=== PATIENT | male | born 1965 | race Caucasian/White ===

== ENCOUNTER 2017-12-02 21:41 | Emergency (ER) | payer OTHER ==
[~2017-12-02] VITALS: Ht 175.3 cm; Wt 81.9 kg
[2017-12-02 21:45] VITALS: TEMP 36.6; O2SAT 94; Ht 175.3 cm; Wt 81.9 kg
[2017-12-02] MEDS ORDERED: LIDOCAINE HCL 2% VISC SOLN 20 ML UDC PO STA (21:56)
[2017-12-02] MEDS ORDERED: ALUMINUM/MAGNESIUM SUSP 30 ML UDC PO STA (21:56)
[2017-12-02 22:04] LABS: BASO % 0.4 %; BASO ABS # 0.02 K/uL (0-0.2); EOS % 6.4 %; EOS ABS # 0.36 K/uL (0-0.5); HEMATOCRIT 46.8 % (42-52); IG# 0.01 K/uL (0.00-0.02); LYMPH % 35.6 %; LYMPH ABS # 2.01 K/uL (1.2-3.4); MEAN CELL VOLUME 89.8 fL (80-100); MEAN CORPUSCULAR HEMOGLOBIN 32.6 pg (25-34); MEAN CORPUSCULAR HGB CONC 36.3 g/dl (32-36); MEAN PLATELET VOLUME 10.5 fL (7.4-10.4); MONO % 15.6 %; MONO ABS # 0.88 K/uL (0.11-0.59); NEUT % 41.8 %; NEUT ABS # 2.37 K/uL (1.4-6.5); PLATELET COUNT 139 K/uL (130-400); RED CELL DISTRIBUTION WIDTH CV 12.6 % (11.5-14.5); RED CELL DISTRIBUTION WIDTH SD 41.2 fL (36.4-46.3); WHITE BLOOD COUNT 5.65 K/uL (4.8-10.8)
--- NOTE | 2017-12-02 22:18 | DIAGNOSTIC IMAGING REPORT ---
SINGLE VIEW CHEST CLINICAL HISTORY: Atypical chest pain. FINDINGS: An AP, portable, upright chest radiograph is obtained. No prior studies are available for comparison at the time of dictation. The examination is degraded by portable technique and patient rotation. The cardiomediastinal silhouette is unremarkable. There is mild elevation of the right hemidiaphragm. The lungs and pleural spaces are clear. No pneumothorax is seen. The bony thorax is grossly intact. IMPRESSION: No active disease in the chest. Electronically signed by: Shmuel Santillan M.D. 12/02/2017 10:16 PM Dictated Date/Time: 12/02/2017 10:16 PM
[2017-12-02 22:25] LABS: ALBUMIN 3.9 gm/dl (3.4-5.0); ALT/SGPT 120 U/L (12-78); BLOOD UREA NITROGEN 8 mg/dl (7-18); CALCIUM 8.9 mg/dl (8.5-10.1); CARBON DIOXIDE 27 mmol/L (21-32); CREATININE 0.91 mg/dl (0.60-1.40); GLUCOSE 106 mg/dl (70-99); LIPASE 212 U/L (73-393); POTASSIUM 3.6 mmol/L (3.5-5.1); SODIUM 138 mmol/L (136-145)
[2017-12-02 22:30] LABS: ALKALINE PHOSPHATASE 77 U/L (45-117); AST/SGOT 51 U/L (15-37); TOTAL PROTEIN 7.7 gm/dl (6.4-8.2)
[2017-12-02] MEDS ORDERED: CARV3.122 PO (23:01)
[2017-12-02] MEDS ORDERED: LOSA50TA6 PO (23:01)
[2017-12-02] MEDS ORDERED: KRIL1CAP3 (23:01)
[2017-12-02] MEDS ORDERED: MULT-513 PO (23:01)
[2017-12-02] MEDS ORDERED: B-COTAB18 PO (23:01)
[2017-12-02] MEDS ORDERED: ASPI81TA28 PO (23:01)
[2017-12-02] MEDS ORDERED: OMEG10007 PO (23:01)
[2017-12-02] MEDS ORDERED: PANT40TA PO (23:01)
[2017-12-02] MEDS ORDERED: VITACAP37 PO (23:04)
[2017-12-03 01:00] VITALS: BP 134/83
[2017-12-03 01:05] VITALS: PULSE 67; O2SAT 95
[2017-12-03] MEDS ORDERED: ALBUTEROL HFA 8 GM INHALER INH STA (01:05)
[2017-12-03] MEDS ORDERED: DOXY100C2 PO (01:10)
[2017-12-03] MEDS ORDERED: DOXYCYCLINE HYCLATE 100 MG CAP PO ONE (01:15)
--- NOTE | 2017-12-03 06:31 | EMERGENCY ROOM VISIT NOTE ---
History First contact with patient: 21:49 Chief Complaint: CARDIAC ASSESSMENT Stated Complaint: CARDIAC ASSESSMENT Nursing Triage Summary: patient has been sick for a few weeks with aches and chills. today developed burning in his chest, pain in bilateral jaw and a cough. went to Dr. Henao and had EKG changes. Was given 324mg of aspirin History of Present Illness The patient is a 52 year old male who presents to the Emergency Room with complaints of cough and congestion for the past week and a half he developed some intermittent chest burning today that is short-lived in nature and nonexertional. Patient believes is from his coughing. She had bronchitis before and symptoms feel similar. He went to urgent care who sent him here. He was given aspirin. Patient had a stent placed in 2012. He normally goes to [facility]. 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 He had a stress test April 2017 and was normal per patient. Patient states he has been feeling sick for the past week and 1/2-2 weeks. No documented temperature. Patient denies exertional chest pain, diaphoresis, nausea, leg pain or swelling, dyspnea, fever , chills, abdominal pain, sore throat, vomiting, diarrhea, earache, neck stiffness. He is tolerating p.o. fluids but has a decreased appetite. He does not smoke. He has not traveled recently. There is no family history of blood clots. There is a family history of heart disease with his grandfather in his 60s. Review of Systems An 10 system review of systems was completed with positives and pertinent negatives listed in the HPI. Past Medical/Surgical History Coronary artery disease, hypertension, GERD Social History Smoking Status: Never Smoker Smokeless Tobacco Use: No Alcohol Use: none Drug Use: none Marital Status: Housing Status: lives with family Occupation Status: employed Current/Historical Medications Scheduled Aspirin (Aspirin Ec), 81 MG PO DAILY B-Complex Vitamins (Vitamin B Complex), 1 TAB PO DAILY Carvedilol (Coreg), 3.125 MG PO BID Doxycycline Hyclate (Vibramycin), 100 MG PO BID Fish Oil ([place]-3), 1 CAP PO BID Krill Oil (Krill Oil), 1 CAP DAILY Losartan Potassium (Cozaar), 50 MG PO DAILY Multivitamins/Minerals (Mvi With Minerals), 1 TAB PO DAILY Pantoprazole (Protonix), 40 MG PO DAILY Vitamin E (E-400), 400 UNITS PO DAILY Physical Exam Vital Signs Date Time Temp Pulse Resp B/P (MAP) Pulse Ox O2 Delivery O2 Flow Rate FiO2 12/03/17 01:05 67 26 95 12/03/17 01:00 134/83 12/03/17 00:50 52 16 94 12/03/17 00:30 143/88 12/03/17 00:20 55 19 94 12/03/17 00:15 60 23 95 Room Air 12/03/17 00:00 152/94 12/02/17 23:45 64 16 95 12/02/17 23:30 170/103 12/02/17 23:15 70 15 95 12/02/17 23:13 173/96 12/02/17 22:45 61 94 12/02/17 22:11 72 12/02/17 21:45 94 Room Air 12/02/17 21:45 36.6 74 22 203/125 96 Room Air 12/02/17 21:45 Room Air Physical Exam VITALS: Vitals are noted on the nurse's note and reviewed by myself. Vital signs hypertensive GENERAL: pleasant male, in no acute distress, nondiaphoretic, well-developed well-nourished. SKIN: The skin was without rashes, erythema, edema, or bruising. There is no tenting of the skin. Capillary reflex less than 2 seconds. HEAD: Normocephalic atraumatic. EARS: External auditory canals clear, tympanic membranes pearly diaz without erythema or effusion bilaterally. EYES: Pupils equal round and reactive to light and accommodation. Conjunctivae without injection, sclerae without icterus. Extraocular movements intact. NOSE: Patent, turbinates without inflammation or discharge. MOUTH: Mucous membranes moist. Pharynx without erythema or exudate. Uvula midline. Airway patent. Tongue does not deviate. NECK: Supple without nuchal rigidity. No lymphadenopathy. No thyromegaly. Cervical spine is nontender. No JVD. HEART: Regular rate and rhythm without murmurs gallops or rubs. chest NTTP LUNGS: Clear to auscultation bilaterally without wheezes, rales or rhonchi. No retractions or accessory muscle use. ABDOMEN: Positive bowel sounds x 4. Normal tympanic percussion. Soft, nontender, without masses or organomegaly. Andrew sign negative. No guarding or rebound tenderness. No CVA tenderness MUSCULOSKELETAL: No muscle atrophy, erythema, or edema noted. NEURO: Patient was alert and oriented to person place and time. Normal sensation to light and sharp touch. No focal neurological deficits. Medical Decision & Procedures Laboratory Results 12/02/17 21:55 Red Blood Count 5.21, Mean Corpuscular Volume 89.8, Mean Corpuscular Hemoglobin 32.6, Mean Corpuscular Hemoglobin Concent 36.3, Mean Platelet Volume 10.5, Neutrophils (%) (Auto) 41.8, Lymphocytes (%) (Auto) 35.6, Monocytes (%) (Auto) 15.6, Eosinophils (%) (Auto) 6.4, Basophils (%) (Auto) 0.4, Neutrophils # (Auto ) 2.37, Lymphocytes # (Auto) 2.01, Monocytes # (Auto) 0.88, Eosinophils # (Auto ) 0.36, Basophils # (Auto) 0.02 12/02/17 21:55 Test 12/02/17 21:55 12/02/17 22:02 12/03/17 00:10 White Blood Count 5.65 K/uL (4.8-10.8) Red Blood Count 5.21 M/uL (4.7-6.1) Hemoglobin 17.0 g/dL (14.0-18.0) Hematocrit 46.8 % (42-52) Mean Corpuscular Volume 89.8 fL (80-100) Mean Corpuscular Hemoglobin 32.6 pg (25-34) Mean Corpuscular Hemoglobin Concent 36.3 g/dl (32-36) Platelet Count 139 K/uL (130-400) Mean Platelet Volume 10.5 fL (7.4-10.4) Neutrophils (%) (Auto) 41.8 % Lymphocytes (%) (Auto) 35.6 % Monocytes (%) (Auto) 15.6 % Eosinophils (%) (Auto) 6.4 % Basophils (%) (Auto) 0.4 % Neutrophils # (Auto) 2.37 K/uL (1.4-6.5) Lymphocytes # (Auto) 2.01 K/uL (1.2-3.4) Monocytes # (Auto) 0.88 K/uL (0.11-0.59) Eosinophils # (Auto) 0.36 K/uL (0-0.5) Basophils # (Auto) 0.02 K/uL (0-0.2) RDW Standard Deviation 41.2 fL (36.4-46.3) RDW Coefficient of Variation 12.6 % (11.5-14.5) Immature Granulocyte % (Auto) 0.2 % Immature Granulocyte # (Auto) 0.01 K/uL (0.00-0.02) Anion Gap 9.0 mmol/L (3-11) Est Creatinine Clear Calc Drug Dose 92.8 ml/min Estimated GFR () 110.3 Estimated GFR (Non- 95.2 BUN/Creatinine Ratio 8.3 (10-20) Calcium Level 8.9 mg/dl (8.5-10.1) Total Bilirubin 0.5 mg/dl (0.2-1) Direct Bilirubin 0.1 mg/dl (0-0.2) Aspartate Amino Transf (AST/SGOT) 51 U/L (15-37) Alanine Aminotransferase (ALT/SGPT) 120 U/L (12-78) Alkaline Phosphatase 77 U/L (45-117) Total Protein 7.7 gm/dl (6.4-8.2) Albumin 3.9 gm/dl (3.4-5.0) Lipase 212 U/L (73-393) Bedside Troponin I 0.030 ng/ml (0-0.045) Troponin I < 0.015 ng/ml (0-0.045) Medications Administered Medications (Trade) Dose Ordered Sig/Foster Route Start Time Stop Time Status Last Admin Dose Admin Lidocaine HCl (Viscous Lidocaine 2% Soln) 10 ml NOW STAT PO 12/02/17 21:56 12/02/17 21:57 DC 12/02/17 22:06 10 ML Al Hydroxide/Mg Hydroxide (Maalox Susp) 30 ml NOW STAT PO 12/02/17 21:56 12/02/17 21:57 DC 12/02/17 22:06 30 ML Doxycycline Hyclate (Vibramycin Cap) 100 mg ONE ONCE PO 12/03/17 01:15 12/03/17 01:16 DC 12/03/17 01:18 100 MG Albuterol (Ventolin Hfa Inhaler) 2 puffs ONE STAT INH 12/03/17 01:05 12/03/17 01:07 DC 12/03/17 01:19 60 PUFFS ED Course Prior records/ancillary studies reviewed. Triage Nursing notes reviewed. Additional history obtained from family. The patient's history was concerning for chest pain. Differential diagnosis: Etiologies such as cardiac ischemia, aortic dissection, pulmonary embolism, pneumonia, pneumothorax, musculoskeletal, infections, pericarditis, myocarditis , esophageal rupture, gastrointestinal, as well as others were entertained. Physical examination: As above. ER treatment provided: GI cocktail, doxycycline, albuterol On reassessment the patient felt better. Diagnostic interpretation by me: The electrocardiogram was negative for pathologic change. Normal sinus, normal intervals, no acute ST-T wave changes. Impression normal sinus rhythm interpreted by myself The labs revealed 2 negative troponins greater than 2 hours apart Imaging studies: Chest x-ray with no acute consolidation, pneumothorax or free of my interpretation HEART SCORE: Hx: high/mod/low suspicion: 0 ECG: ST depression/nonspecific changes/normal: 0 Age: Greater than 65/45-64/less than 45: 1 Risk factors: (Hypertension, hyperlipidemia, diabetes, coronary disease, tobacco use, cocaine use): 3 Troponin: Greater than 2 times normal limits/1-2 times normal limits/normal: 0 Total: 3 Exam and history seem consistent with chest burning most likely from bronchitis. He has had bronchitis before and symptoms feel similar. He has been feeling sick for the past week and a half. He states he normally his antibiotics and inhaler. He states Zithromax does not work for him. Patient had 2 negative troponins greater than 2 hours apart. Heart score is 3. He had a stress test in April that was normal. His symptoms are not exertional. They are not prolonged. He is well-appearing. He is requesting to leave. I felt this is reasonable. He was advised to take medications as directed, rest, stay well-hydrated and follow-up family care in a day or 2 here in the ER sooner for chest pain, dyspnea, worsening signs or symptoms or as needed. By the evaluation outlined above emergent etiologies such as cardiac ischemia, aortic dissection, pulmonary embolism, pneumonia, pneumothorax, pericarditis, myocarditis, gastrointestinal, as well as others were deemed relatively unlikely. The pt informed about the findings as listed above. All questions were answered and pleased with the treatment. Return instructions were outlined and the patient was discharged in stable condition. Outpatient prescription management: Doxycycline Referral: The patient was referred back to primary care physician for follow-up in 2 to 3 days for a recheck of the current condition. Case reviewed with my attending The chart was completed utilizing [employer] Speech voice recognition software. Grammatical errors, random word insertions, pronoun errors, and incomplete sentences are an occassional consequence of this system due to software limitations, ambient noise, and hardware issues. Any formal questions or concerns about the content, text, or information contained within the body of this dictation should be directly addressed to the physician emergency veterinary assistant for clarification. Medical Decision As above Medication Reconcilliation Current Medication List: was personally reviewed by me Blood Pressure Screening Patient's blood pressure: Normal blood pressure Impression Primary Impression: Bronchitis Additional Impression: Burning chest pain Departure Information Dispostion Home / Self-Care Condition GOOD Prescriptions Doxycycline Hyclate (VIBRAMYCIN) 100 Mg Cap 100 MG PO BID for 7 Days, #14 CAP Prov: Sylwia Gonzalez PA-C 12/03/17 Forms Work Instructions, Return To Work: 2 days IMPORTANT VISIT INFORMATION Patient Instructions Bronchitis Acute, My [facility] Additional Instructions Doxycycline 100mg: Take one pill twice daily for seven days for your infection. Take with food, but avoid dairy. Avoid prolonged sun exposure since this medication makes you temporarily more susceptible to sunburns. All antibiotics can cause diarrhea. If this occurs and you feel worse or it does not resolve in 1-2 days follow up with your doctor or return to the Emergency Department as this could be signs of serious underlying problems. Any medication can cause an allergic reaction, stop the pills immediately and return to the ER for rash, hives, breathing difficulties, or swelling. Albuterol Inhaler: Take 2 puffs four times daily for seven days, then as needed. Acetaminophen(Tylenol) may be used for fever or pain. Use 1000mg every six hours as needed. Avoid using more than 3000mg in a 24 hour period. AND/OR Ibuprofen(Motrin, Advil) may be used for fever or pain. Use 600mg every six hours as needed. Take with food. Avoid using more than 2400mg in a 24 hour period. Do not use 2400mg per day for more than three consecutive days without physician direction. Prolonged inappropriate use can lead to stomach upset or ulcers. Controlling your fever with Tylenol and Ibuprofen as above will make you feel better. Rest and drink plenty of fluids. Avoid strenuous activity until your symptoms resolve and your breathing returns to normal. Continue current medications. Return to the ER for chest pain, difficulty breathing, persistent fevers, vomiting, worsening of your condition, or as needed. Follow-up with family care in 2-3 days. Work Instructions Return To Work: 2 days Problem Qualifiers
== END 2017-12-03 01:28 | disposition home or self-care (01) ==
LOC: EDBD 21:41 → C.EDC 21:45
DX: J40 Bronchitis, not specified as acute or chronic (principal); R07.89 Other chest pain; I10 Essential (primary) hypertension; I25.10 Atherosclerotic heart disease of native coronary artery without angina pectoris; K21.9 Gastro-esophageal reflux disease without esophagitis; Z95.5 Presence of coronary angioplasty implant and graft; Z79.82 Long term (current) use of aspirin; Z79.899 Other long term (current) drug therapy; Z82.49 Family history of ischemic heart disease and other diseases of the circulatory system